=== PATIENT | female | born 1940 | race Caucasian/White ===

== ENCOUNTER 2021-11-02 06:14 | Day surgery (SDC) | payer OTHER, BC ==
[2021-10-27 11:06] VITALS: BMI 25.0
[2021-11-02] MEDS ORDERED: MIDAZOLAM HCL 2 MG/2 ML SINGLE DOSE VIAL ONE (07:11)
[2021-11-02] MEDS ORDERED: PROPOFOL 20 ML ONE (07:11)
[2021-11-02] MEDS ORDERED: ERYTHROMYCIN 0.5% OPHTHALMIC OINTMENT 3.5 GM TUBE ONE (07:14)
[2021-11-02] MEDS ORDERED: BACITRACIN/POLYMYXIN OPH OINT 3.5 GM TUBE ONE (07:14)
[2021-11-02] MEDS ORDERED: EPINEPHrine/PF 1 MG/1 ML (1:1,000) AMPULE ONE (07:14)
[2021-11-02] MEDS ORDERED: ceFAZolin SODIUM 1 GM VIAL ONE ×2 (07:14→09:30)
[2021-11-02] MEDS ORDERED: TETRACAINE 0.5% OPHTH SOLN 2 ML BOTTLE ONE (07:15)
[2021-11-02] MEDS ORDERED: LIDOCAINE HCL 1%, 10 MG/ML (20ML VIAL) ONE (07:15)
[2021-11-02] MEDS ORDERED: BUPIVACAINE HCL 50 ML ONE (07:15)
[2021-11-02] MEDS ORDERED: POVIDONE-IODINE 5% OPHTHALMIC PREP 30 ML SOLUTION ONE (07:15)
[2021-11-02] MEDS ORDERED: ONDANSETRON 4 MG/2 ML VIAL IVPUSH PRN (07:29)
[2021-11-02] MEDS ORDERED: LACTATED RINGERS SOLUTION 1,000 ML IV SCH (07:30)
[2021-11-02] MEDS ORDERED: DEXAMETHASONE SOD PHOSPHATE 4 MG/1 ML VIAL ONE (09:30)
[2021-11-02] MEDS ORDERED: ONDANSETRON 4 MG/2 ML VIAL ONE (09:30)
[2021-11-02 11:15] VITALS: BP 116/72; PULSE 72; TEMP 97.7
== END 2021-11-02 12:35 | disposition home or self-care (01) ==
LOC: FASU 06:14
PROVIDERS: ATTEND Ophthalmology
PROC: 0KX10ZZ Transfer Facial Muscle, Open Approach (ICD-10-PCS; 2021-11-02)
PROC: 0JQ10ZZ Repair Face Subcutaneous Tissue and Fascia, Open Approach (ICD-10-PCS; principal; 2021-11-02 09:17)
DX: C44.1022 Unspecified malignant neoplasm of skin of right lower eyelid, including canthus (principal)
CPT/HCPCS: 94760